=== PATIENT | female | born 2000 | race Caucasian/White ===

== ENCOUNTER 2024-06-24 09:00 | Inpatient (IN) | payer OTHER, MEDICAID ==
[~2024-06-24] VITALS: Ht 162.6 cm; Wt 69.5 kg
[2024-06-24 09:06] VITALS: O2SAT 99
[2024-06-24] MEDS ORDERED: ONDANSETRON HCL 4MG/2ML INJ IV ONE (09:30)
[2024-06-24 11:03] LABS: BASOPHILS % 0.1 % (0.0-2.0); EOSINOPHILS % 0.5 % (0.0-5.0); HEMATOCRIT. 44.2 % (36.0-48.0); HEMOGLOBIN. 14.1 g/dL (12.0-16.0); LYMPHOCYTES % 8.5 % (20.0-50.0); MEAN CORPUSCULAR HGB CONC 31.8 g/dL (31.0-37.0); MEAN CORPUSCULAR VOLUME 87.9 fL (81.0-99.0); MONOCYTES % 6.2 % (2.0-8.0); NEUTROPHILS % 84.7 % (40.0-76.0); PLATELET 389 x1000/uL (130-400); RED BLOOD CELL COUNT 5.03 mill/uL (4.2-5.4); RED CELL DISTRIBUTION WIDTH 13.2 % (11.6-14.6); WHITE BLOOD COUNT 12.9 x1000/uL (4.5-11.0)
[2024-06-24] MEDS: ACETAMINOPHEN 325MG TABLET PO ONE (11:06)
[2024-06-24] MEDS: ONDANSETRON 4MG ODT PO ONE (11:06)
[2024-06-24] MEDS: MAGNESIUM/ALUMINUM HYDROXIDE/SIMETHICONE 30ML UDC PO ONE (11:06)
[2024-06-24] MEDS: SODIUM CHLORIDE 0.9% 1,000 ML IV ONE (11:06)
[2024-06-24 11:14] LABS: INR 1.1; PROTHROMBIN TIME 12.6 sec (9.6-11.0)
[2024-06-24 11:21] LABS: CHLORIDE 106 mEq/L (98-107); POTASSIUM 3.8 mEq/L (3.5-5.1); SODIUM 139 mEq/L (136-145)
[2024-06-24 11:22] LABS: CALCIUM 9.8 mg/dL (8.7-10.4); CARBON DIOXIDE 24 mEq/L (21-32)
[2024-06-24 11:27] LABS: CREATININE 0.7 mg/dL (0.6-1.0); GLUCOSE 97 mg/dL (70-105); HCG SCREEN NEGATIVE; UREA NITROGEN BLOOD 6 mg/dL (9-23)
[2024-06-24 11:28] LABS: CLARITY URINE CLOUDY (CLEAR); COLOR URINE DARK YELLOW (YELLOW); GLUCOSE URINE NEGATIVE (NEGATIVE); KETONES URINE 1+ (NEGATIVE); LEUKOCYTE ESTERASE URINE 3+ (NEGATIVE); NITRITE URINE POSITIVE (NEGATIVE); OCCULT BLOOD URINE NEGATIVE (NEGATIVE); PH URINE 6.5 (4.5-8.0); PROTEIN URINE 2+ (NEGATIVE); SPECIFIC GRAVITY URINE 1.022 (1.005-1.030)
[2024-06-24 11:29] LABS: ALANINE AMINOTRANSFERASE 175 IU/L (10-49); ALBUMIN 4.7 g/dL (3.2-4.8); ASPARTATE AMINOTRANSFERASE 252 IU/L (<34)
[2024-06-24 11:30] LABS: BILIRUBIN TOTAL 1.4 mg/dL (0.1-1.0); PROTEIN TOTAL 8.3 g/dL (6.0-8.3)
[2024-06-24 11:35] LABS: ETHANOL BLOOD < 10 mg/dL (<10); TROPONIN I HIGH SENSITIVITY < 4 ng/L (3.0-34)
[2024-06-24 11:49] LABS: BACTERIA URINE 4+; SQUAMOUS EPITHELIAL CELL URINE 2+ /lpf (RARE/1+); TRICHOMONAS URINE 1+; WBC URINE 50-100 /hpf (0-2); YEAST URINE NONE SEEN
[2024-06-24 11:56] LABS: *AMPHETAMINES SCREEN URINE PRESUMPTIVE POSITIVE (NEGATIVE)
[2024-06-24 11:57] LABS: *BARBITURATES SCREEN URINE NEGATIVE (NEGATIVE); *BENZODIAZEPINES SCREEN URINE NEGATIVE (NEGATIVE); *COCAINE SCREEN URINE NEGATIVE (NEGATIVE); CANNABINOID URINE SCREEN NEGATIVE (NEGATIVE); ECSTASY MDMA SCREEN URINE NEGATIVE (NEGATIVE); METHADONE URINE SCREEN NEGATIVE (NEGATIVE); OPIATES URINE SCREEN NEGATIVE (NEGATIVE); PHENCYCLIDINE URINE SCREEN NEGATIVE (NEGATIVE)
[2024-06-24] MEDS: ONDANSETRON HCL 4MG/2ML INJ IV ONE (12:39)
[2024-06-24] MEDS: MORPHINE SULFATE 4 MG/ML INJ (FOR IV/IM USE) IV ONE (12:39)
[2024-06-24] MEDS: CEFTRIAXONE 1GM/50ML 50 ML IV ONE (13:37)
[2024-06-24] MEDS ORDERED: ONDANSETRON HCL 4MG/2ML INJ IV PRN (15:15)
[2024-06-24] MEDS ORDERED: GUAIFENESIN 200MG/10ML SUGAR FREE UDC PO PRN (15:15)
[2024-06-24] MEDS ORDERED: CLONIDINE 0.1MG TABLET PO PRN (15:15)
[2024-06-24] MEDS ORDERED: MAGNESIUM/ALUMINUM HYDROXIDE/SIMETHICONE 30ML UDC PO PRN (15:15)
[2024-06-24] MEDS ORDERED: DOCUSATE SODIUM 100MG CAPSULE PO PRN (15:15)
[2024-06-24] MEDS ORDERED: ACETAMINOPHEN 325MG TABLET PO PRN ×2 (15:15)
[2024-06-24] MEDS ORDERED: IPRATROPIUM/ALBUTEROL 0.5-3(2.5)MG/3ML NEB HHN PRN (15:15)
[2024-06-24] MEDS ORDERED: KETOROLAC 15MG/ML VIAL IV PRN (15:30)
[2024-06-24] MEDS: CEFTRIAXONE 1GM/50ML 50ML IV NR (15:30)
[2024-06-24 15:41] LABS: TROPONIN I HIGH SENSITIVITY < 4 ng/L (3.0-34)
[2024-06-25] MEDS: LACTATED RINGERS 1,000 ML IV SCH (01:30)
[2024-06-25 06:03] LABS: CARBON DIOXIDE 24 mEq/L (21-32); CHLORIDE 104 mEq/L (98-107); POTASSIUM 3.7 mEq/L (3.5-5.1); SODIUM 138 mEq/L (136-145)
[2024-06-25 06:04] LABS: BASOPHILS % 0.2 % (0.0-2.0); CALCIUM 9.2 mg/dL (8.7-10.4); HEMATOCRIT. 39.4 % (36.0-48.0); HEMOGLOBIN. 13.3 g/dL (12.0-16.0); LYMPHOCYTES % 14.3 % (20.0-50.0); MEAN CORPUSCULAR HEMOGLOBIN 29.5 pg (28.0-32.0); MEAN CORPUSCULAR HGB CONC 33.7 g/dL (31.0-37.0); MEAN CORPUSCULAR VOLUME 87.7 fL (81.0-99.0); MEAN PLATELET VOLUME 7.2 fl (7.4-10.4); MONOCYTES % 5.1 % (2.0-8.0); NEUTROPHILS % 79.4 % (40.0-76.0); PLATELET 365 x1000/uL (130-400); RED BLOOD CELL COUNT 4.49 mill/uL (4.2-5.4); RED CELL DISTRIBUTION WIDTH 13.3 % (11.6-14.6)
[2024-06-25 06:09] LABS: CREATININE 0.5 mg/dL (0.6-1.0); GLUCOSE 108 mg/dL (70-105); TRIGLYCERIDE 80 mg/dL (0-150)
[2024-06-25 06:10] LABS: LDL CHOLESTEROL 75 mg/dL (5-100)
[2024-06-25 06:11] LABS: CHOLESTEROL 113 mg/dL (<200); CREATINE KINASE 49 IU/L (34-145); HDL CHOLESTEROL 21 mg/dL (>65); T4 FREE 1.28 ng/dL (0.89-1.76); THYROID STIMULATING HORMONE 0.72 uIU/mL (0.55-4.78)
[2024-06-25 06:19] LABS: UREA NITROGEN BLOOD < 5 mg/dL (9-23)
[2024-06-25] MEDS: CEFTRIAXONE 2GM/50ML 50 ML IV SCH (12:38)
[2024-06-26 01:14] VITALS: BP 122/75; PULSE 82; RESP 19; TEMP 37.0296
[2024-06-26] MEDS ORDERED: ONDA4TAB50 PO (01:40)
[2024-06-26] MEDS ORDERED: BENJ IM (01:40)
[2024-06-26 08:00] VITALS: BP 115/65; PULSE 75; RESP 18; TEMP 36.16956; O2SAT 99
[2024-06-26 12:00] VITALS: BP 115/60; PULSE 99; RESP 18; TEMP 36.44736; O2SAT 99
[2024-06-26 16:00] VITALS: BP 107/60; PULSE 84; RESP 18; TEMP 36.28068; O2SAT 100
[2024-06-27 08:08] LABS: CALCIUM 8.9 mg/dL (8.7-10.4); CHLORIDE 108 mEq/L (98-107); POTASSIUM 4.2 mEq/L (3.5-5.1); SODIUM 140 mEq/L (136-145)
[2024-06-27 08:09] LABS: CARBON DIOXIDE 26 mEq/L (21-32)
[2024-06-27 08:12] LABS: BASOPHILS % 0.3 % (0.0-2.0); HEMATOCRIT. 37.3 % (36.0-48.0); HEMOGLOBIN. 12.6 g/dL (12.0-16.0); LYMPHOCYTES % 27.4 % (20.0-50.0); MEAN CORPUSCULAR HGB CONC 33.9 g/dL (31.0-37.0); MEAN CORPUSCULAR VOLUME 88.6 fL (81.0-99.0); MEAN PLATELET VOLUME 6.8 fl (7.4-10.4); MONOCYTES % 5.8 % (2.0-8.0); NEUTROPHILS % 64.5 % (40.0-76.0); PLATELET 364 x1000/uL (130-400); RED BLOOD CELL COUNT 4.21 mill/uL (4.2-5.4); WHITE BLOOD COUNT 6.8 x1000/uL (4.5-11.0)
[2024-06-27 08:14] LABS: CREATININE 0.7 mg/dL (0.6-1.0); GLUCOSE 120 mg/dL (70-105); UREA NITROGEN BLOOD 6 mg/dL (9-23)
[2024-06-27 08:16] LABS: PHOSPHORUS 3.8 mg/dL (2.5-4.9)
[2024-06-27] MEDS: FLUOXETINE HCL 20MG CAPSULE PO SCH (10:56)
[2024-06-27] MEDS: ARIPIPRAZOLE 5MG TABLET PO SCH (10:57)
[2024-06-27] MEDS ORDERED: CEFTRIAXONE 1GM/50ML 50 ML IV SCH (13:00)
== END 2024-06-27 12:15 | disposition left against medical advice (07) | DRG 720 ==
LOC: ER 09:00 → EDBEDREQ 13:27 → EDBEDREQTM 13:27 → 6EST 06-25 13:23 → ER 06-26 00:38
PROVIDERS: ADMIT Internal Medicine; ATTEND Internal Medicine
PROC: GZ51ZZZ Individual Psychotherapy, Behavioral (ICD-10-PCS; principal; 2024-06-25)
DX: A41.9 Sepsis, unspecified organism (principal); R45.851 Suicidal ideations; K80.00 Calculus of gallbladder with acute cholecystitis without obstruction; K76.0 Fatty (change of) liver, not elsewhere classified; F33.2 Major depressive disorder, recurrent severe without psychotic features; E80.6 Other disorders of bilirubin metabolism; R74.01 Elevation of levels of liver transaminase levels; Z20.822 Contact with and (suspected) exposure to COVID-19; N39.0 Urinary tract infection, site not specified; Z53.21 Procedure and treatment not carried out due to patient leaving prior to being seen by health care provider
CPT/HCPCS: 36415; 71045; 76705; 80048; 80053; 80061; 80305; 80320; 81003; 82550; 83735; 84100; 84145; 84439; 84443; 84484; 84703; 85025; 86850; 86900; 87077; 87426; 93005; 96365; 96366; 96375; 99285; J0696; J2270; J2405; J7030; J7120; Q0162; G0480